=== PATIENT | male | born 1960 | race Caucasian/White ===

== ENCOUNTER 2018-09-20 08:58 | Day surgery (SDC) | payer OTHER ==
[~2018-09-20] VITALS: Ht 167.6 cm; Wt 63.7 kg
[~2018-09-20 08:58] MED LIST: NO MEDS.
[2018-09-20 09:43] VITALS: Ht 167.6 cm; Wt 63.7 kg
[2018-09-20 10:23] VITALS: BP 132/72; PULSE 65; RESP 18
[2018-09-20] MEDS ORDERED: LIDOCAINE 4% SOLUTION 50 ML BTL ONE (10:23)
[2018-09-20 11:44] VITALS: BP 130/77; PULSE 72; RESP 16
[2018-09-20] MEDS ORDERED: MIDAZOLAM 1 MG/ML 2 ML INJ ONE ×2 (12:22→12:23)
[2018-09-20] MEDS ORDERED: FENTAnyl 50 MCG/ML VIAL ONE (12:23)
== END 2018-09-20 12:38 | disposition home or self-care (01) ==
LOC: GIL 08:58
PROVIDERS: ATTEND Internal Medicine Gastroenterology
DX: Z12.11 Encounter for screening for malignant neoplasm of colon (principal); D12.0 Benign neoplasm of cecum; K57.90 Diverticulosis of intestine, part unspecified, without perforation or abscess without bleeding; K29.50 Unspecified chronic gastritis without bleeding
CPT/HCPCS: 43239; 45380; 88305; 88312; J2250; J3010; Z7610